=== PATIENT | female | born 1950 | race Caucasian/White ===

== ENCOUNTER 2018-09-26 16:42 | Emergency (ER) | payer SELFPAY ==
[2018-09-26 16:52] VITALS: BMI 29.9
[2018-09-26] MEDS ORDERED: ONDANSETRON 4 MG/2 ML VIAL IVPUSH ONE (17:06)
[2018-09-26] MEDS ORDERED: PANTOPRAZOLE SODIUM 40 MG in SODIUM CHLORIDE 100 ML IVPB ONE (17:07)
[2018-09-26] MEDS ORDERED: SODIUM CHLORIDE 1,000 ML IV STA (17:08)
--- NOTE | 2018-09-26 17:20 | PDOC ---
Rapid Medical Evaluation Chief Complaint: Pain Time Seen by Provider: 09/26/18 16:51 Medical Evaluation: Allergies Allergy/AdvReac Type Severity Reaction Status Date / Time No Known Allergies Allergy Verified 09/26/18 16:49 Vital Signs Temp Pulse Resp BP Pulse Ox 98.2 F 84 80 H 144/80 98 09/26/18 16:49 09/26/18 16:49 09/26/18 16:49 09/26/18 16:49 09/26/18 16:49 09/26/18 17:07 Patient complains of:epigastric pain with nausea and diarrhea Patient on brief exam: epigastric tenderness. vss, no cva tenderness Patient ordered for:labs, urine, ivf, zofran Patient to proceed to the ED Discharge Disposition - Diagnosis Nausea - Discharge Dispostion Last Admission D/C Date: 12/19/10 - Referrals - Patient Instructions - Post Discharge Activity
[2018-09-26] MEDS ORDERED: FAMOTIDINE 20 MG/50 ML IVPB 20 MG/50 ML MG IVPB ONE ×2 (17:48→17:58)
[2018-09-26] MEDS ORDERED: ONDANSETRON 4 MG/2 ML VIAL ONE (17:48)
[2018-09-26] MEDS ORDERED: ACETAMINOPHEN 1000 MG/100 ML VIAL (NON FORMULARY) IVPB ONE (17:58)
--- NOTE | 2018-09-26 18:05 | PDOC ---
History of Present Illness - History of Present Illness Initial Comments: The pt is a 67F w/ no reported PMH who presents for evaluation of 2-3 days of constant, cramping, epigastric abdominal pain that does not radiate, and is not exacerbated or alleviated by anything she can identify. She endorses associated nausea. She has tried Tylenol w/ minimal relief. She has not had this pain before. She denies fevers/chills, vision changes, chest pain, SOB, vomiting, diarrhea, blood in her stool, dysuria, or hematuria. 09/26/18 18:08 <Samy Cobb - Last Filed: 09/26/18 18:40> <Vargas Madrigal - Last Filed: 09/26/18 20:05> - General Chief Complaint: Pain Stated Complaint: ABDOMINAL PAIN Time Seen by Provider: 09/26/18 16:51 Past History - Past Medical History COPD: No - Immunization History Immunization Up to Date: Yes - Suicide/Smoking/Psychosocial Hx Smoking History: Never smoked Information on smoking cessation initiated: No Hx Alcohol Use: No Drug/Substance Use Hx: No <Samy Cobb - Last Filed: 09/26/18 18:40> <Vargas Madrigal - Last Filed: 09/26/18 20:05> - Past Medical History Allergies/Adverse Reactions: Allergies Allergy/AdvReac Type Severity Reaction Status Date / Time No Known Allergies Allergy Verified 09/26/18 16:49 Review of Systems - Review of Systems Able to Perform ROS?: Yes Comments:: GENERAL/CONSTITUTIONAL: No fever or chills. No weakness HEAD, EYES, EARS, NOSE AND THROAT: No change in vision. No ear pain or discharge. No sore throat CARDIOVASCULAR: No chest pain or shortness of breath RESPIRATORY: Denies cough, hemoptysis GASTROINTESTINAL: No vomiting, diarrhea or constipation GENITOURINARY: No dysuria, frequency, or change in urination. MUSCULOSKELETAL: No joint or muscle swelling or pain. No neck or back pain SKIN: No rash NEUROLOGIC: No headache, vertigo, loss of consciousness, or change in strength/ sensation ENDOCRINE: No increased thirst. No abnormal weight change HEMATOLOGIC/LYMPHATIC: No anemia, easy bleeding, or history of blood clots ALLERGIC/IMMUNOLOGIC: No hives or skin allergy 09/26/18 18:03 <Samy Cobb - Last Filed: 09/26/18 18:40> *Physical Exam - Vital Signs Last Vital Signs Temp Pulse Resp BP Pulse Ox 98.2 F 84 20 144/80 98 09/26/18 16:49 09/26/18 16:49 09/26/18 16:49 09/26/18 16:49 09/26/18 16:49 - Physical Exam Comments: GENERAL: Awake, alert, and oriented to person/place/time, in no acute distress HEAD: No signs of trauma, normocephalic, atraumatic EYES: PERRLA, EOMI, sclera anicteric, conjunctiva clear ENT: Hearing grossly normal, nares patent, oropharynx clear without exudates. No uvular deviation. Moist mucosa LUNGS: No distress, speaks full sentences, clear to auscultation bilaterally HEART: Regular rate and rhythm, normal S1 and S2, no murmurs appreciated, peripheral pulses normal and equal bilaterally ABDOMEN: Soft, protuberant, mild epigastric TTP w/o rebound or guarding, normoactive bowel sounds EXTREMITIES: Normal inspection, Normal range of motion, no edema. No clubbing or cyanosis NEUROLOGICAL: Cranial nerves II through XII grossly intact. Normal speech, normal gait, no focal sensorimotor deficits SKIN: Warm, Dry 09/26/18 18:03 <Samy Cobb - Last Filed: 09/26/18 18:40> - Vital Signs Last Vital Signs Temp Pulse Resp BP Pulse Ox 98.5 F 69 20 138/70 98 09/26/18 16:49 09/26/18 16:49 09/26/18 16:49 09/26/18 16:49 09/26/18 16:49 <Vargas Madrigal - Last Filed: 09/26/18 20:05> ED Treatment Course - RADIOLOGY Radiology Studies Ordered: Category Date Time Status ABDOMEN US -LIMITED [US] Stat Ultrasound 09/26/18 18:01 Ordered - Medications Given in the ED: ED Medications Discontinued Medications Generic Name Dose Route Start Last Admin Trade Name Freq PRN Reason Stop Dose Admin Pantoprazole Sodium 40 mg/ 100 mls @ 200 mls/hr 09/26/18 17:07 09/26/18 17:58 Sodium Chloride IVPB 09/26/18 17:36 Not Given ONCE ONE Ondansetron HCl 4 mg 09/26/18 17:06 09/26/18 17:58 Zofran Injection IVPUSH 09/26/18 17:07 4 mg ONCE ONE Administration <KatherynSamy scruggs - Last Filed: 09/26/18 18:40> - LABORATORY CBC & Chemistry Diagram: 09/26/18 18:05 09/26/18 17:55 - ADDITIONAL ORDERS Additional order review: Laboratory Results 09/26/18 17:55 Sodium 140 Potassium 3.9 Chloride 108 H Carbon Dioxide 26 Anion Gap 6 L BUN 14.2 Creatinine 0.7 Est GFR (CKD-EPI)AfAm 105.38 Est GFR (CKD-EPI)NonAf 90.92 Random Glucose 93 Calcium 8.8 Magnesium 2.3 Total Bilirubin 0.4 AST 15 ALT 27 Alkaline Phosphatase 118 H Creatine Kinase 131 Troponin I < 0.02 Total Protein 7.0 Albumin 3.5 Lipase 338 09/26/18 18:05 RBC 4.09 MCV 86.3 MCHC 33.2 RDW 13.8 MPV 8.0 Neutrophils % 54.6 Lymphocytes % 35.7 Monocytes % 7.9 Eosinophils % 1.6 Basophils % 0.2 - Medications Given in the ED: ED Medications Discontinued Medications Generic Name Dose Route Start Last Admin Trade Name Freq PRN Reason Stop Dose Admin Acetaminophen 1,000 mg 09/26/18 17:58 09/26/18 18:14 Ofirmev Injection - IVPB 09/26/18 17:59 1,000 mg ONCE ONE Administration Pantoprazole Sodium 40 mg/ 100 mls @ 200 mls/hr 09/26/18 17:07 09/26/18 17:58 Sodium Chloride IVPB 09/26/18 17:36 Not Given ONCE ONE Sodium Chloride 1,000 mls @ 1,000 mls/hr 09/26/18 17:08 09/26/18 17:58 Normal Saline - IV 09/26/18 18:07 1,000 mls/hr ASDIR STA Administration Famotidine/Sodium Chloride 20 mg in 50 mls @ 100 mls/hr 09/26/18 17:58 17:59 Pepcid 20 Mg Premixed Ivpb - IVPB 09/26/18 18:27 100 mls/hr ONCE ONE Administration Ondansetron HCl 4 mg 09/26/18 17:06 09/26/18 17:58 Zofran Injection IVPUSH 09/26/18 17:07 4 mg ONCE ONE Administration <Vargas Madrigal - Last Filed: 09/26/18 20:05> Medical Decision Making - Medical Decision Making The pt is a 67F w/ no reported PMH who presents for evaluation of 2-3 days of epigastric abdominal pain Ddx gastritis, PUD, biliary disease, pancreatitis, consider ACS; not likely SBO , diverticulitis, AAA/AD ED Course CMP, CBC, Lipase, UA ECG CXR, RUQ US Pepcid, Zofran, IVF, Ofirmev 09/26/18 18:11 <Samy Cobb - Last Filed: 09/26/18 18:40> - Medical Decision Making CBC,CMP WBC 8.0 K/mm3 (4.0-10.0) 09/26/18 18:05 RBC 4.09 M/mm3 (3.60-5.2) 09/26/18 18:05 Hgb 11.7 GM/dL (10.7-15.3) 09/26/18 18:05 Hct 35.3 % (32.4-45.2) 09/26/18 18:05 MCV 86.3 fl (80-96) 09/26/18 18:05 MCH 28.7 pg (25.7-33.7) 09/26/18 18:05 MCHC 33.2 g/dl (32.0-36.0) 09/26/18 18:05 RDW 13.8 % (11.6-15.6) 09/26/18 18:05 Plt Count 272 K/MM3 (134-434) 09/26/18 18:05 MPV 8.0 fl (7.5-11.1) 09/26/18 18:05 Absolute Neuts (auto) 4.4 K/mm3 (1.5-8.0) 09/26/18 18:05 Neutrophils % 54.6 % (42.8-82.8) 09/26/18 18:05 Lymphocytes % 35.7 % (8-40) 09/26/18 18:05 Monocytes % 7.9 % (3.8-10.2) 09/26/18 18:05 Eosinophils % 1.6 % (0-4.5) 09/26/18 18:05 Basophils % 0.2 % (0-2.0) 09/26/18 18:05 Nucleated RBC % 0 % (0-0) 09/26/18 18:05 Sodium 140 mmol/L (136-145) 09/26/18 17:55 Potassium 3.9 mmol/L (3.5-5.1) 09/26/18 17:55 Chloride 108 mmol/L (98-107) H 09/26/18 17:55 Carbon Dioxide 26 mmol/L (21-32) 09/26/18 17:55 Anion Gap 6 MMOL/L (8-16) L 09/26/18 17:55 BUN 14.2 mg/dL (7-18) 09/26/18 17:55 Creatinine 0.7 mg/dL (0.55-1.3) 09/26/18 17:55 Est GFR (CKD-EPI)AfAm 105.38 09/26/18 17:55 Est GFR (CKD-EPI)NonAf 90.92 09/26/18 17:55 Random Glucose 93 mg/dL (74-106) 09/26/18 17:55 Calcium 8.8 mg/dL (8.5-10.1) 09/26/18 17:55 Magnesium 2.3 mg/dL (1.8-2.4) 09/26/18 17:55 Total Bilirubin 0.4 mg/dL (0.2-1) 09/26/18 17:55 AST 15 U/L (15-37) 09/26/18 17:55 ALT 27 U/L (13-61) 09/26/18 17:55 Alkaline Phosphatase 118 U/L (45-117) H 09/26/18 17:55 Creatine Kinase 131 U/L (26-192) 09/26/18 17:55 Troponin I < 0.02 ng/ml (0.00-0.05) 09/26/18 17:55 Total Protein 7.0 g/dl (6.4-8.2) 09/26/18 17:55 Albumin 3.5 g/dl (3.4-5.0) 09/26/18 17:55 Lipase 338 U/L (73-393) 09/26/18 17:55 Labs above Patient feels better after GI cocktail. Will DC patient with GI follow up <Vargas Madrigal - Last Filed: 09/26/18 20:05> *DC/Admit/Observation/Transfer <Samy Cobb - Last Filed: 09/26/18 18:40> - Discharge Dispostion Decision to Admit order: No <Vargas Madrigal - Last Filed: 09/26/18 20:05> Diagnosis at time of Disposition: Nausea Abdominal pain Qualifiers: Abdominal location: epigastric Qualified Code(s): R10.13 - Epigastric pain - Discharge Dispostion Disposition: HOME Condition at time of disposition: Stable - Referrals Referrals: Ruslan Gloria MD [Staff Physician] - Silas Calderon MD [Staff Physician] - - Patient Instructions Printed Discharge Instructions: Acute Abdominal Pain Additional Instructions: You came into the ER with abdominal pain. Please make sure to follow up with the GI doctor we are referring you to. Come back to the ER immediately if your pain returns or you have any other new or worsening concerns. Thank you for coming to the [facility] ER. We hope you feel better soon! Print Language: DANISH
[2018-09-26] MEDS ORDERED: ACETAMINOPHEN INJECTION 100 ML IVPB ONE (18:12)
[2018-09-26 18:23] LABS: BASO % 0.2 % (0-2.0); EOS % 1.6 % (0-4.5); HEMATOCRIT 35.3 % (32.4-45.2); HEMOGLOBIN 11.7 GM/dL (10.7-15.3); LYMPH % 35.7 % (8-40); MCH 28.7 pg (25.7-33.7); MCHC 33.2 g/dl (32.0-36.0); MEAN CELL VOLUME 86.3 fl (80-96); MONO % 7.9 % (3.8-10.2); NEUT % 54.6 % (42.8-82.8); PLATELET COUNT 272 K/MM3 (134-434); RBC 4.09 M/mm3 (3.60-5.2); RDW 13.8 % (11.6-15.6)
[2018-09-26 18:31] VITALS: BP 138/70; PULSE 69; TEMP 98.5
--- NOTE | 2018-09-26 18:51 | PDOC ---
Documentation entered by Etta Og SCRIBE, acting as scribe for Johana Gant MD. Johana Gant MD: This documentation has been prepared by the rosaibe, Etta Og SCRIBE, under my direction and personally reviewed by me in its entirety. I confirm that the documentation accurately reflects all work, treatment, procedures, and medical decision making performed by me. Attending Attestation - Resident Resident Name: Samy Cobb - ED Attending Attestation I have performed the following: I have examined & evaluated the patient, The case was reviewed & discussed with the resident, I agree w/resident's findings & plan, Exceptions are as noted - HPI HPI: 09/26/18 18:28 The patient is a 67 year old female with no reported past medical history presents to the emergency department with epigastric pain. The patient presents with 2-3 days of constant epigastric pain, cramping in quality, mild relief with Tylenol, associated with nausea and a single episode of diarrhea. Denies hematochezia, melena, vomiting, dysuria, hematuria. Prior surgical history of C- section. Allergies: NKDA - Physicial Exam PE: 09/26/18 18:50 GENERAL: The patient is in no acute distress. ENT: Ears normal, nares patent, oropharynx clear without exudates. Moist mucous membranes. NECK: Normal range of motion, supple, no nuchal rigidity LUNGS: Breath sounds equal, clear to auscultation bilaterally. No wheezes, and no crackles. HEART: Regular rate and rhythm, normal S1 and S2 without murmur, rub or gallop. ABDOMEN: +epigastric tenderness. Soft, normoactive bowel sounds. No guarding, no rebound. No masses palpable. EXTREMITIES: Normal range of motion, no edema. NEUROLOGICAL: Cranial nerves II through XII grossly intact. Normal speech. No focal neurological deficits. SKIN: Warm, Dry, normal turgor, no rashes or lesions noted. - Medical Decision Making 09/26/18 18:45 67 yo F presenting to the ER due to epigastric pain No fevers or chills DD: pancreatitis, gastritis, biliary colic, SBO unlikely, colitis unlikely, ACS unlikely Will do: Labs EKG US or CT Re Assess Twelve-lead EKG was performed and reviewed by me. There is normal sinus rhythm with a normal rate. The axis is normal. The intervals are normal. There are no ST or T wave abnormalities. Impression: Normal twelve-lead EKG 09/26/18 18:46 Laboratory Tests 09/26/18 18:05 WBC 8.0 Hgb 11.7 Hct 35.3 Plt Count 272 Signed out pending Labs and Imaging Will re Assess
[2018-09-26 18:52] LABS: ALBUMIN 3.5 g/dl (3.4-5.0); ALK PHOS 118 U/L (45-117); ANION GAP 6 MMOL/L (8-16); BILIRUBIN,TOTAL 0.4 mg/dL (0.2-1); BLOOD UREA NITROGEN 14.2 mg/dL (7-18); CALCIUM 8.8 mg/dL (8.5-10.1); CHLORIDE 108 mmol/L (98-107); CO2 26 mmol/L (21-32); CREATININE 0.7 mg/dL (0.55-1.3); GLUCOSE,RANDOM 93 mg/dL (74-106); LIPASE 338 U/L (73-393); MAGNESIUM 2.3 mg/dL (1.8-2.4); POTASSIUM 3.9 mmol/L (3.5-5.1); SGOT/AST 15 U/L (15-37); SGPT/ALT 27 U/L (13-61); SODIUM 140 mmol/L (136-145)
--- NOTE | 2018-09-27 08:07 | EKG ---
Test Reason : Blood Pressure : / mmHG Vent. Rate : 063 BPM Atrial Rate : 063 BPM P-R Int : 164 ms QRS Dur : 092 ms QT Int : 418 ms P-R-T Axes : 048 -18 012 degrees QTc Int : 427 ms NORMAL SINUS RHYTHM NORMAL ECG WHEN COMPARED WITH ECG OF 15-DEC-2010 13:53, PREMATURE VENTRICULAR COMPLEXES ARE NO LONGER PRESENT Confirmed by XIOMARA LIZAMA, ANGE ([id number]) on 09/27/2018 8:07:22 AM Referred By: Confirmed By:ANGE SOLANO MD
== END 2018-09-26 20:25 | disposition home or self-care (01) ==
LOC: JER 16:42
PROC: 3E0337Z Introduction of Electrolytic and Water Balance Substance into Peripheral Vein, Percutaneous Approach (ICD-10-PCS; principal; 2018-09-26)
PROC: 3E033GC Introduction of Other Therapeutic Substance into Peripheral Vein, Percutaneous Approach (ICD-10-PCS; 2018-09-26)
PROC: 3E033GC Introduction of Other Therapeutic Substance into Peripheral Vein, Percutaneous Approach (ICD-10-PCS; 2018-09-26)
PROC: 3E033NZ Introduction of Analgesics, Hypnotics, Sedatives into Peripheral Vein, Percutaneous Approach (ICD-10-PCS; 2018-09-26)
DX: R10.9 Unspecified abdominal pain (principal)
CPT/HCPCS: 36415; 76705-TC; 80053; 82550; 83690; 83735; 84484; 85025; 93005; 93010; 99283-25; J0131; J7030

== ENCOUNTER 2023-03-30 04:21 | Day surgery (SDC) | payer OTHER ==
[2023-03-29 13:35] VITALS: BMI 32.9
[~2023-03-30 04:21] MED LIST: ACETAMINOPHEN 325 MG TABLET (FP) PO PRN; BSS (NA/CA/MG/K) BALANCED SALT SOLUTION OPHTH SOLN 15 ML BOTTLE OD ONE; LIDOCAINE 1%/EPI 1:100000 (20 ML MULTI DOSE VIAL) IJ ONE; POVIDONE-IODINE 5% OPHTHALMIC PREP 30 ML SOLUTION OD ONE; TRIAMCINOLONE ACET 40MG/1ML VIAL NR ONE
[2023-03-30] MEDS ORDERED: BSS (NA/CA/MG/K) BALANCED SALT SOLUTION OPHTH SOLN 15 ML BOTTLE ONE (07:30)
[2023-03-30] MEDS ORDERED: TRIAMCINOLONE ACET 40MG/1ML VIAL ONE (07:30)
[2023-03-30] MEDS ORDERED: TETRACAINE 0.5% OPHTH SOLN 2 ML BOTTLE ONE (07:30)
[2023-03-30] MEDS ORDERED: POVIDONE-IODINE 5% OPHTHALMIC PREP 30 ML SOLUTION ONE (07:31)
[2023-03-30] MEDS: OFLOXACIN 0.3% OPHTHALMIC SOLUTION 5 ML BOTTLE OP SCH ×5 (08:07→09:01)
[2023-03-30] MEDS ORDERED: OFLOXACIN 0.3% OPHTHALMIC SOLUTION 5 ML BOTTLE ONE (08:08)
[2023-03-30] MEDS ORDERED: LIDOCAINE 1%/EPI 1:100000 (20 ML MULTI DOSE VIAL) ONE (10:49)
[2023-03-30] MEDS ORDERED: TETRACAINE 0.5% OPHTH SOLN 2 ML BOTTLE TP ONE (11:36)
[2023-03-30] MEDS ORDERED: MIDAZOLAM HCL 2 MG/2 ML SINGLE DOSE VIAL ONE (11:36)
[2023-03-30] MEDS ORDERED: POVIDONE-IODINE 5% OPHTHALMIC PREP 30 ML SOLUTION OD ONE (11:40)
[2023-03-30] MEDS ORDERED: BSS (NA/CA/MG/K) BALANCED SALT SOLUTION OPHTH SOLN 15 ML BOTTLE OD ONE (11:44)
[2023-03-30] MEDS ORDERED: LIDOCAINE 1%/EPI 1:100000 (20 ML MULTI DOSE VIAL) IJ ONE (11:45)
[2023-03-30] MEDS ORDERED: TRIAMCINOLONE ACET 40MG/1ML VIAL NR ONE (12:05)
[2023-03-30] MEDS ORDERED: KETOROLAC TROMETHAMINE 30 MG/1 ML VIAL ONE (12:08)
[2023-03-30 13:55] VITALS: RESP 20; TEMP 97.2
[2023-03-30 13:57] VITALS: BP 125/69; PULSE 70
== END 2023-03-30 12:51 | disposition home or self-care (01) ==
LOC: JASU-SURG 04:21
PROVIDERS: ATTEND Ophthalmology
PROC: 08U007Z Supplement of Right Eye with Autologous Tissue Substitute, Open Approach (ICD-10-PCS; principal; 2023-03-30 11:00)
DX: H11.001 Unspecified pterygium of right eye (principal)
CPT/HCPCS: 82962